=== PATIENT | female | born 1990 | race Caucasian/White ===

== ENCOUNTER 2016-12-25 21:46 | Emergency (ER) | payer SELFPAY ==
[2016-12-25 21:49] VITALS: BP 108/59; PULSE 87; RESP 15; TEMP 99; O2SAT 100
[2016-12-25] MEDS ORDERED: SODIUM CHLOR 0.9% 1000 ML INJ 1,000 ML IV ONE (22:29)
[2016-12-25] MEDS ORDERED: ONDANSETRON HCL 4 MG/2 ML VIAL IVP ONE (22:30)
[2016-12-25] MEDS ORDERED: SODIUM CHLORIDE 0.9% FLUSH 10 ML FLUSH IVF PRN (22:30)
[2016-12-25 22:40] VITALS: RESP 18; O2SAT 100
[2016-12-25 23:02] LABS: AUTOMATED NEUTROPHIL # 3.3 TH/MM3 (1.8-7.7); BASOPHIL # 0.1 TH/MM3 (0-0.2); EOSINOPHIL # 0.1 TH/MM3 (0-0.4); HEMO FLAGS DIFF FINAL; LYMPH % 32.3 % (9.0-44.0); LYMPHOCYTE # 1.8 TH/MM3 (1.0-4.8); MEAN CELL VOLUME 87.4 FL (80.0-100.0); MEAN CORPUSCULAR HEMOGLOBIN 29.6 PG (27.0-34.0); MEAN CORPUSCULAR HGB CONC 33.9 % (32.0-36.0); NEUT % 59.7 % (16.0-70.0); PLATELET COUNT 199 TH/MM3 (150-450); RED BLOOD COUNT 4.23 MIL/MM3 (4.00-5.30); RED CELL DISTRIBUTION WIDTH 12.9 % (11.6-17.2); WHITE BLOOD COUNT 5.5 TH/MM3 (4.0-11.0)
[2016-12-25 23:19] LABS: BICARBONATE 24.3 MEQ/L (21.0-32.0); POTASSIUM 3.3 MEQ/L (3.5-5.1)
[2016-12-25] MEDS ORDERED: ZOFR4TAB3 SL (23:20)
--- NOTE | 2016-12-25 23:22 | PD ---
HPI . Abdominal pain Chief Complaint: GI Complaint Time Seen by Provider: 22:29 Travel History International Travel<30 days: No Contact w/Intl Traveler<30days: No Traveled to known affect area: No History of Present Illness HPI Patient presents complaining with lower abdominal pain associated with nausea and vomiting. She reports 10 episodes of emesis. Symptoms started at 4 PM. No diarrhea. No fever. No urinary tract symptoms. She is 2 months . She denies any dyspareunia or vaginal discharge. PFSH Past Medical History Diminished Hearing: No ?: LMP: 2 mos ago : 2 Para: 1 Past Surgical History Surgical History: No Previous Surgery Social History Alcohol Use: No Tobacco Use: No (never) Substance Use: No Allergies-Medications (Allergen,Severity, Reaction): Coded Allergies: Penicillin (Verified Allergy, Unknown, 12/25/16) Reported Meds & Prescriptions Reported Meds & Active Scripts Active Zofran Odt (Ondansetron Odt) 4 Mg Tab 4 Mg SL Q6HR PRN Review of Systems Except as stated in HPI: all other systems reviewed are Neg General / Constitutional: No: Fever, Chills Gastrointestinal: Positive: Nausea, Vomiting, Abdominal Pain, No: Diarrhea Genitourinary: No: Urgency, Frequency, Dysuria, Dyspareunia, Discharge, Vaginal Bleeding Physical Exam Narrative GENERAL: Patient is awake and alert and in no acute distress. She is [place]- speaking. SKIN: Warm and dry. HEAD: Atraumatic. Normocephalic. EYES: Pupils equal and round. Extraocular movements are intact. ENT: No nasal bleeding or discharge. Mucous membranes pink and moist. NECK: Trachea midline. Neck is supple. CARDIOVASCULAR: Regular rate and rhythm. Heart sounds are normal. RESPIRATORY: No accessory muscle use. Lungs are clear with full air movement throughout. GASTROINTESTINAL: Abdomen soft. Mild suprapubic tenderness with no guarding or rebound. Nondistended. MUSCULOSKELETAL: No obvious deformities. No edema. NEUROLOGICAL: Awake and alert. No obvious cranial nerve deficits. Motor grossly within normal limits. Normal speech. PSYCHIATRIC: Appropriate mood and affect; insight and judgment normal. Data Data Last Documented VS Vital Signs Date Time Temp Pulse Resp B/P Pulse Ox O2 Delivery O2 Flow Rate FiO2 12/25/16 21:49 99.0 87 15 108/59 100 Room Air Orders Complete Blood Count With Diff (12/25/16 22:29) Basic Metabolic Panel (Bmp) (12/25/16 22:29) Urinalysis - C+S If Indicated (12/25/16 22:29) Iv Access Insert/Monitor (12/25/16 22:29) Ecg Monitoring (12/25/16 22:29) Oximetry (12/25/16 22:29) Ondansetron Inj (Zofran Inj) (12/25/16 22:30) Sodium Chlor 0.9% 1000 Ml Inj (Ns 1000 M (12/25/16 22:29) Sodium Chloride 0.9% Flush (Ns Flush) (12/25/16 22:30) Ed Poc Ultrasound (12/25/16 23:22) Labs Laboratory Tests Test 12/25/16 12/25/16 22:35 22:50 White Blood Count 5.5 TH/MM3 Red Blood Count 4.23 MIL/MM3 Hemoglobin 12.5 GM/DL Hematocrit 37.0 % Mean Corpuscular Volume 87.4 FL Mean Corpuscular Hemoglobin 29.6 PG Mean Corpuscular Hemoglobin 33.9 % Concent Red Cell Distribution Width 12.9 % Platelet Count 199 TH/MM3 Mean Platelet Volume 9.4 FL Neutrophils (%) (Auto) 59.7 % Lymphocytes (%) (Auto) 32.3 % Monocytes (%) (Auto) 5.0 % Eosinophils (%) (Auto) 2.0 % Basophils (%) (Auto) 1.0 % Neutrophils # (Auto) 3.3 TH/MM3 Lymphocytes # (Auto) 1.8 TH/MM3 Monocytes # (Auto) 0.3 TH/MM3 Eosinophils # (Auto) 0.1 TH/MM3 Basophils # (Auto) 0.1 TH/MM3 CBC Comment DIFF FINAL Differential Comment Sodium Level 139 MEQ/L Potassium Level 3.3 MEQ/L Chloride Level 107 MEQ/L Carbon Dioxide Level 24.3 MEQ/L Anion Gap 8 MEQ/L Blood Urea Nitrogen 6 MG/DL Creatinine 0.49 MG/DL Estimat Glomerular Filtration 155 ML/MIN Rate Random Glucose 96 MG/DL Calcium Level 8.9 MG/DL Urine Color YELLOW Urine Turbidity HAZY Urine pH 6.5 Urine Specific [place] 1.019 Urine Protein NEG mg/dL Urine Glucose (UA) NEG mg/dL Urine Ketones 40 mg/dL Urine Occult Blood NEG Urine Nitrite NEG Urine Bilirubin NEG Urine Urobilinogen LESS THAN 2.0 MG/DL Urine Leukocyte Esterase MOD Urine RBC 2 /hpf Urine WBC 4 /hpf Urine Squamous Epithelial 4 /hpf Cells Urine Bacteria RARE /hpf Urine Mucus FEW /lpf Microscopic Urinalysis Comment CULT NOT INDICATED MDM Medical Decision Making Medical Screen Exam Complete: Yes Emergency Medical Condition: Yes Differential Diagnosis Differential diagnosis includes but is not limited to viral gastritis, food poisoning, pancreatitis, pneumonia, hepatitis, acute coronary syndrome, Narrative Course Patient presents complaining with lower abdominal pain and vomiting. Abdominal exam is benign. She'll be treated with IV fluids and IV antiemetics. CBC & BMP Diagram 12/25/16 22:35 UA shows moderate leukocyte esterase, 4 white cells and rare bacteria. Procedures Procedure Narrative Emergency Department Pelvic ultrasound was performed with patient consent. The curvilinear probe was used in the transverse and sagittal views within the suprapubic region revealing a positive intrauterine with positive heart rate. Diagnosis Primary Impression: Abdominal pain Qualified Code: R10.30 - Lower abdominal pain Additional Impressions: Vomiting Qualified Code: R11.2 - Non-intractable vomiting with nausea, unspecified vomiting type Qualified Code: Z3A.08 - 8 weeks gestation of Urinary tract infection Qualified Code: N30.00 - Acute cystitis without hematuria Patient Instructions: Acute Nausea and Vomiting (DC), General Instructions, Urinary Tract Infection in Women (DC) Med/Other Pt SpecificInfo: Prescription(s) given Scripts Nitrofurantoin Monohydrate Macrocrystals (Macrobid)100 Mg [id number] Mg PO BID 7 Days Ref 0 Prov:Dulce Maria Schilling MD 12/26/16 Ondansetron Odt (Zofran Odt)4 Mg Tab4 Mg SL Q6HR PRN (Nausea/Vomiting) #30 TAB Ref 0 Prov:Dulce Maria Schilling MD 12/25/16 Disposition: 01 DISCHARGE HOME Condition: Stable Dulce Maria Schilling MD December 25, 2016 23:22
[2016-12-26 00:12] LABS: BACTERIA, URINE RARE /hpf; BLOOD, URINE NEG (NEG); COMMENT (UR) CULT NOT INDICATED; CULTURE IF INDICATED CULT NOT INDICATED; GLUCOSE,URINE NEG (NEG); KETONE, URINE 40 mg/dL (NEG); MUCUS URINE FEW /lpf (OCC); NITRITE,URINE NEG (NEG); PH, URINE 6.5 (5.0-8.5); SQUAMOUS EPITHELIAL CELL URINE 4 /hpf (0-5); URINE COLOR YELLOW (YELLW/STRAW)
[2016-12-26] MEDS ORDERED: MACR100C2 PO (00:29)
== END 2016-12-26 01:36 | disposition home or self-care (01) ==
LOC: NEPD 21:46
DX: O26.891 Other specified pregnancy related conditions, first trimester (principal); R10.30 Lower abdominal pain, unspecified; O21.9 Vomiting of pregnancy, unspecified; O23.41 Unspecified infection of urinary tract in pregnancy, first trimester; Z3A.08 8 weeks gestation of pregnancy
CPT/HCPCS: 80048; 81001; 85025; 96374; 99284; J2405; J7030

== ENCOUNTER 2017-01-01 19:33 | Emergency (ER) | payer SELFPAY ==
[~2017-01-01] VITALS: Ht 162.6 cm; Wt 50.0 kg
[~2017-01-01 19:33] MED LIST: MACR100C2 PO; ZOFR4TAB3 SL
[2017-01-01 19:34] VITALS: BP 100/53; PULSE 75; RESP 14; TEMP 98.6; O2SAT 99
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
[2017-01-01 20:43] LABS: BACTERIA, URINE FEW /hpf; BLOOD, URINE SMALL (NEG); COMMENT (UR) CULT NOT INDICATED; CULTURE IF INDICATED CULT NOT INDICATED; GLUCOSE,URINE NEG (NEG); KETONE, URINE NEG (NEG); MUCUS URINE FEW /lpf (OCC); NITRITE,URINE NEG (NEG); SQUAMOUS EPITHELIAL CELL URINE 22 /hpf (0-5); URINE COLOR YELLOW (YELLW/STRAW)
== END 2017-01-01 21:23 | disposition home or self-care (01) ==
LOC: NEPD 19:33
DX: O26.891 Other specified pregnancy related conditions, first trimester (principal); O99.89 Other specified diseases and conditions complicating pregnancy, childbirth and the puerperium; R10.84 Generalized abdominal pain; Z3A.09 9 weeks gestation of pregnancy; Y04.2XXA Assault by strike against or bumped into by another person, initial encounter; Y93.89 Activity, other specified; Y92.019 Unspecified place in single-family (private) house as the place of occurrence of the external cause; Y99.8 Other external cause status
CPT/HCPCS: 81001; 84703; 99284

== ENCOUNTER 2017-07-23 07:24 | Inpatient (IN) | payer MEDICAID ==
[2017-07-23] VITALS (31 sets, daily range): BP systolic 101–131; BP diastolic 56–73; PULSE 53–105; RESP 16–20; TEMP 97.5–99; O2SAT 97–99
[~2017-07-23] VITALS: Ht 152.4 cm; Wt 68.0 kg
[2017-07-23] MEDS ORDERED: LACTATED RINGER'S 1000 ML INJ 1,000 ML IV PRN (08:34)
[2017-07-23] MEDS ORDERED: LACTATED RINGER'S 1000 ML INJ 1,000 ML IV SCH (08:34)
[2017-07-23] MEDS ORDERED: LIDOCAINE HCL 1% 50 ML VIAL I-DERMAL PRN (08:45)
[2017-07-23] MEDS ORDERED: OXYTOCIN 30 UNITS-500ML PREMIX 500 ML IV ONE (08:45)
[2017-07-23] MEDS ORDERED: LIDOCAINE HCL 1% 50 ML VIAL INFIL PRN (08:45)
[2017-07-23] MEDS ORDERED: MINERAL OIL 10 ML VIAL TOPICAL PRN (08:45)
[2017-07-23] MEDS ORDERED: CITRIC ACID-SODIUM CITRATE LIQ 30 ML UDC PO SCH (08:45)
[2017-07-23] MEDS ORDERED: SODIUM CHLORID 0.9% 500 ML INJ 500 ML IV PRN (08:45)
[2017-07-23] MEDS ORDERED: SODIUM CHLOR 0.9% 1000 ML INJ 1,000 ML IV PRN (08:54)
--- NOTE | 2017-07-23 08:56 | HHI.HP ---
History & Physical H&P HPI Chief Complaint rupture of membranes with vaginal bleeding Date Seen: Jul 23, 2017 Time Seen: 08:10 Travel History International Travel<30 Days: No Contact w/Intl Traveler<30Days: No Known Affected Area: No History of Present Illness HPI Ms Edmonds is a 26YO at 39 weeks seen by Jackelin Clements who presents with SROM time unknown this morning with meconium stained fluid and some vaginal bleeding. 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 Pt is having painful contractions approx 3 minutes apart. Denies CP, N/V/D, and DVT pain, but does have some SOB. Pt also had chlamydia at 4 months of 01/25 that was treated and test of cure at 03/27 negative Chlamydia and GC. HepB negative. Pt GBS status is unknown. Weeks Gestation: 39 Para: 1 : 3 Miscarriage: 1 : 0 History (Limited) History Past Medical History Medical History: Denies Significant Hx Obstetric History Obstetric History 1x 1x spontaneous miscarriage Chlamydia treated at 4 months of Past Surgical History Surgical History: No Previous Surgery Family History Narrative Family History Father and Mother with DM, HTN, CAD, but no cancer Social History Alcohol Use: No Tobacco Use: No Substance Abuse: No Allergies-Medications Allergies-Medications (Allergen,Severity, Reaction): Coded Allergies: penicillin G (Unverified Allergy, Unknown, 03/25/17) Comments SOB with Penicillin Home Meds Active Scripts Nitrofurantoin Monohydrate Macrocrystals (Macrobid) 100 Mg Cap, 100 MG PO BID for Infection for 7 Days, CAP 0 Refills Prov:Dulce Maria Schilling MD 12/26/16 Ondansetron Odt (Zofran Odt) 4 Mg Tab, 4 MG SL Q6HR Y for Nausea/Vomiting, #30 TAB 0 Refills Prov:Dulce Maria Schilling MD 12/25/16 ROS Review of Systems General / Constitutional: No: Fever, Chills HENT: No: Headaches, Lightheadedness Cardiovascular: No: Chest Pain or Discomfort, Palpitations, Edema Respiratory: Short of Breath Gastrointestinal: No: Nausea, Vomiting, Diarrhea Genitourinary: Discharge, Vaginal Bleeding, No: Urgency, Frequency Skin: No Rash Neurologic: No: Weakness, Dizziness Psychiatric: No: Depression Physical Exam Physical Exam Narrative GENERAL: Well-nourished, well-developed patient laboring in bed. SKIN: Warm and dry. No rashes or lesions. HEAD: Normocephalic and atraumatic. EYES: No scleral icterus. No injection or drainage. EOMI. ENT: No nasal drainage noted. Mucous membranes pink. Airway patent. NECK: Supple, trachea midline. No JVD; no lymphadenopathy. CARDIOVASCULAR: Regular rate and rhythm without murmur, gallop, or rub. RESPIRATORY: Breath sounds equal bilaterally in all lung ceballos. No accessory muscle use. ABDOMEN/GI: Abdomen soft, non-tender, bowel sounds present, no rebound, no guarding Gravid to 39 weeks size Fundal Height: 39cm GENITOURINARY: Cervix: posterior Dilatation: 4 Effacement: 70 Station: -2 Presentation: vtx Membranes: ruptured Uterine Contractions: yes, q3m FHT's: Category: 1 Baseline: 140 Reactive: yes Variability: moderate Decels: none EXTREMITIES: No cyanosis or edema. BACK: Nontender without obvious deformity. No CVA tenderness. NEUROLOGICAL: Awake and alert. Motor and sensory grossly within normal limits. Five out of 5 muscle strength in all muscle groups. Normal speech. Data Data Data Vital Signs Reviewed: Yes Orders Orders Ob (2e) Additional Admit Info (07/23/17 08:29) Admit To Inpatient (07/23/17 ) Code Status (07/23/17 08:34) Vital Signs (Adult) .Per protocol (07/23/17 08:34) Activity Oob Ad Katie (07/23/17 08:34) Heart (07/23/17 08:34) Amnioinfusion (07/23/17 08:34) Urinary Catheter Management .ONCE (07/23/17 08:34) Diet Liquid (07/23/17 Breakfast) Lactated Ringer's 1000 Ml Inj (Lr 1000 M (07/23/17 08:34) Lactated Ringer's 1000 Ml Inj (Lr 1000 M (07/23/17 08:34) Sodium Chlorid 0.9% 500 Ml Inj (Ns 500 M (07/23/17 08:45) Sodium Chlor 0.9% 1000 Ml Inj (Ns 1000 M (07/23/17 08:54) Lidocaine 1% Inj (50 Ml) (Xylocaine 1% I (07/23/17 08:45) Citric Acid-Sodium Citrate Liq (Bicitra (07/23/17 08:45) Fentanyl Inj (Fentanyl Inj) (07/23/17 08:45) Fentanyl Inj (Fentanyl Inj) (07/23/17 08:45) Complete Blood Count With Diff (07/23/17 08:34) Hold Clot (07/23/17 08:34) Abo/Rh Blood Type (07/23/17 08:34) Urinalysis - C+S If Indicated (07/23/17 08:34) Drug Screen, Random Urine (07/23/17 08:34) Rapid Plasma Regin (Rpr) W Ttr (07/23/17 08:34) Resp Oxygen Non Rebreathe Mask (07/23/17 ) ^ Epidural / Intrathecal Infus (07/23/17 08:34) Oxytocin 30 Units-500ml Premix (Pitocin (07/23/17 08:45) Lidocaine 1% Inj (50 Ml) (Xylocaine 1% I (07/23/17 08:45) Light Mineral Oil (Muri-Lube Oil) (07/23/17 08:45) Inpatient Certification (07/23/17 ) MDM MDM Medical Record Reviewed: No (records not available yet) Narrative Course / MDM 26YO at 39 weeks (per pt, records not available yet) with SROM this morning (time unknown) who is followed by Jackelin Clements presents in labor at 4/ 70/-2 with painful contractions and vaginal bleeding, GBS unknown. Chlamydia treated at 4 months of . Cat 1 tracing is reassuring with BL 140, reactive, moderate and no decels. PLAN: -Admit for labor and delivery -IVF -Clear diet -Epidural PRN -Monitoring Discussed with Dr Espino Diagnosis Diagnosis: Primary Impression: Rupture of membranes with meconium present Deni Ayoub MD R1 Jul 23, 2017 08:56
[2017-07-23 09:10] LABS: AUTOMATED NEUTROPHIL # 5.6 TH/MM3 (1.8-7.7); BASOPHIL # 0.1 TH/MM3 (0-0.2); BASOPHIL % 0.7 % (0.0-2.0); EOSINOPHIL % 0.4 % (0.0-4.0); HEMATOCRIT 34.4 % (35.0-46.0); HEMO FLAGS DIFF FINAL; LYMPH % 17.6 % (9.0-44.0); LYMPHOCYTE # 1.3 TH/MM3 (1.0-4.8); MEAN CELL VOLUME 82.1 FL (80.0-100.0); MEAN CORPUSCULAR HEMOGLOBIN 26.4 PG (27.0-34.0); MEAN CORPUSCULAR HGB CONC 32.2 % (32.0-36.0); MONO % 3.6 % (0.0-8.0); NEUT % 77.7 % (16.0-70.0); PLATELET COUNT 231 TH/MM3 (150-450); RED BLOOD COUNT 4.18 MIL/MM3 (4.00-5.30); RED CELL DISTRIBUTION WIDTH 15.3 % (11.6-17.2); WHITE BLOOD COUNT 7.3 TH/MM3 (4.0-11.0)
[2017-07-23 09:17] LABS: BACTERIA, URINE RARE /hpf; BLOOD, URINE MOD (NEG); COMMENT (UR) CULT NOT INDICATED; CULTURE IF INDICATED CULT NOT INDICATED; GLUCOSE,URINE NEG (NEG); KETONE, URINE NEG (NEG); MUCUS URINE FEW /lpf (OCC); NITRITE,URINE NEG (NEG); SQUAMOUS EPITHELIAL CELL URINE 6 /hpf (0-5); URINE COLOR YELLOW (YELLW/STRAW)
--- NOTE | 2017-07-23 10:14 | PD.LABORPN ---
Subjective Subjective Ms Edmonds is a 26YO laboring at 39 weeks with SROM this morning w/ meconium stained fluid a/cervix at 5/80/-1/vtx and Cat 1 tracing (Deni Ayoub MD R1) Objective Vital Signs Vital Signs Date Time Temp Pulse Resp B/P (MAP) Pulse Ox O2 Delivery O2 Flow Rate FiO2 07/23/17 09:25 64 121/69 (86) 07/23/17 09:25 99.0 20 Objective Pelvic Exam: Cervix: posterio Dilatation: 5 Effacement: 80 Station: -1 Presentation: vtx Membranes: ruptured w/bulging bag Uterine Contractions: regular q3m FHT's: Category: 1 Baseline: 140 Reactive: yes Variability: moderate Decels: early decels Weeks Gestation: 39 Pt started active labor?: Yes Active labor start date: Jul 23, 2017 Active labor start time: 08:15 Medical induction of labor?: No Artificial rupture of membrane: No (Deni Ayoub MD R1) Assessment/Plan Assessment and Plan 26YO at 39 weeks with SROM this morning, GBS unknown, 5/80/-1 vtx with bulging bag, Cat 1 reactive BL 140, moderate, early decels PLAN: -Continue active laboring -Epidural PRN if desired Discussed with [place] and [place] (Deni Ayoub MD R1) Assessment and Plan I personally saw the patient with the residents and performed all bell portions of the decision making. (Blanca Canela MD) Deni Ayoub MD R1 Jul 23, 2017 10:14 Blanca Canela MD Jul 23, 2017 22:30
[2017-07-23] MEDS ORDERED: CLINDAMYCIN 900 MG/NS PREMIX 50 ML IV SCH (11:00)
[2017-07-23] MEDS ORDERED: TERBUTALINE INJ 1 MG/ML AMP SQ ONE ×2 (12:30)
--- NOTE | 2017-07-23 13:39 | PD.LABORPN ---
Subjective Subjective covering Dr Baker Objective Vital Signs Vital Signs Date Time Temp Pulse Resp B/P (MAP) Pulse Ox O2 Delivery O2 Flow Rate FiO2 07/23/17 13:10 91 07/23/17 13:05 95 07/23/17 13:01 97 101/60 (74) 07/23/17 13:00 93 07/23/17 12:55 105 07/23/17 12:50 96 07/23/17 12:45 90 07/23/17 12:40 101 07/23/17 12:35 86 07/23/17 12:30 95 07/23/17 12:25 94 07/23/17 12:20 93 07/23/17 12:15 84 07/23/17 11:45 98.5 07/23/17 11:45 18 07/23/17 11:30 60 114/66 (82) 07/23/17 10:32 61 116/70 (85) 07/23/17 10:30 99.0 07/23/17 10:30 18 07/23/17 09:25 64 121/69 (86) 07/23/17 09:25 99.0 20 Objective Pelvic Exam: Cervix: [-] Dilatation: 8 Effacement: [-] Station: [-] Presentation: [-] Membranes: IUPC for variables per Dr baker Uterine Contractions: [-] FHT's: Category: [-] Baseline: [-] Reactive: [-] Variability: [-] Decels: [-] Weeks Gestation: 39 Pt started active labor?: Yes Active labor start date: Jul 23, 2017 Active labor start time: 08:15 Medical induction of labor?: No Artificial rupture of membrane: No Assessment/Plan Problem List: (1) ICD Codes: Z33.1 - state, incidental Status: Acute Quentin Emerson MD Jul 23, 2017 13:39
--- NOTE | 2017-07-23 14:36 | PD.OB.DELI ---
Weeks gestation: 39 Pt started active labor?: Yes Active labor start date: Jul 23, 2017 Active labor start time: 08:15 Medical induction of labor?: No Artificial rupture of membrane: No Anesthesia: None Episiotomy: None Vaginal Delivery: Normal, Spontaneous Presentation: Vertex Nuchal Cord: None Delayed cord clamping (45 sec): No : Male Delivery date: Jul 23, 2017 Delivery time: 14:13 One Minute : 8 Five Minute : 9 Weight: 3155g Placenta: Spontaneous delivery, Intact, 3 vessel cord Laceration: No lacerations Estimated blood loss: 150cc Additional Information Delivery performed by Dr. Baca and Dr. Canela. Marjorie Baca MD R2 Jul 23, 2017 14:36
[2017-07-23] MEDS ORDERED: ONDANSETRON ODT 4 MG TAB PO PRN (14:45)
[2017-07-23] MEDS ORDERED: ZOLPIDEM TARTRATE 5 MG TAB PO PRN (14:45)
[2017-07-23] MEDS ORDERED: OXYTOCIN 30 UNITS-500ML PREMIX 500 ML IV SCH (14:45)
[2017-07-23] MEDS ORDERED: ALUMINUM/MAGNESIUM/SIMETH 30 ML CUP PO PRN (14:45)
[2017-07-23] MEDS ORDERED: BENZOCAINE 20% TOPICAL SPRAY 60 ML CAN TOPICAL PRN (14:45)
[2017-07-23] MEDS ORDERED: DOCUSATE SODIUM 50 MG/SENNA 8.6 MG TAB PO PRN (14:45)
[2017-07-23] MEDS ORDERED: WITCH HAZEL 50%/GLYCERIN 12.5% 40 PAD JAR TOPICAL PRN (14:45)
[2017-07-23] MEDS ORDERED: SODIUM CHLORIDE 0.9% FLUSH 10 ML FLUSH IV FLUSH PRN (14:45)
[2017-07-23] MEDS ORDERED: oxyCODONE/ACETAMINOPHEN 5 MG/325 MG TAB PO PRN ×2 (14:45)
[2017-07-23] MEDS ORDERED: DIPHTH/TETANUS/ACEL PERTUSSIS (BOOSTER) 0.5 ML VIAL/PFS IM ONE (16:00)
[2017-07-23] MEDS ORDERED: MEASLES, MUMPS, RUBELLA VACCINE 0.5 ML VIAL SQ ONE (16:00)
[2017-07-23] MEDS: IBUPROFEN 800 MG TAB PO PRN (18:19)
[2017-07-23] MEDS: SODIUM CHLORIDE 0.9% FLUSH 10 ML FLUSH IV FLUSH SCH (21:00)
[2017-07-24 08:00] VITALS: BP 99/52; PULSE 55; RESP 14; TEMP 98.6
[2017-07-24] MEDS: IBUPROFEN 800 MG TAB PO PRN ×2 (08:14→16:33)
[2017-07-24] MEDS: ACETAMINOPHEN 325 MG TAB PO PRN ×3 (08:15→22:50)
--- NOTE | 2017-07-24 16:06 | HHI.OB ---
Subjective Post Day: 1 Remarks day # 1. AFVSS overnight. Pain not well controlled but patient is not asking for pain medication and complains of back pain. Lochia like a period. Denies dysuria. No breast tenderness. She is feeding the baby via breast. Appetite good. No nausea or vomiting. Positive flatus. Negative bowel movement. Ambulated only to the bathroom. She denies calf pain, shortness of breath, or chest pain. Patient and her significant other repeatedly asked when she can go home with the baby. Notably, the interview was conducted with the help of [facility] interpreting services. Objective Vitals/I&O Vital Signs Date Time Temp Pulse Resp B/P (MAP) Pulse Ox O2 Delivery O2 Flow Rate FiO2 07/24/17 08:00 98.6 55 14 99/52 (68) 07/23/17 20:00 97.5 97 07/23/17 20:00 53 20 107/61 (76) Objective Remarks GENERAL: Well-nourished, well-developed patient. CARDIOVASCULAR: Regular rate and rhythm without murmurs, gallops, or rubs. RESPIRATORY: Breath sounds equal bilaterally. No accessory muscle use. ABDOMEN/GI: Abdomen soft, tender to palpation. Fundus: Firm, below umbilicus. GENITOURINARY: Light to moderate bleeding. EXTREMITIES: No cyanosis or edema, non-tender, without signs of DVT. Medications and IVs Current Medications Medications (Trade) Dose Ordered Sig/Wil Route Start Time Stop Time Status Last Admin (NS Flush) 2 ml BID IV FLUSH 07/23/17 21:00 (NS Flush) 2 ml UNSCH PRN IV FLUSH 07/23/17 14:45 (Tylenol) 650 mg Q4H PRN PO 07/23/17 14:45 07/24/17 08:15 (Motrin) 800 mg Q8H PRN PO 07/23/17 14:45 07/24/17 08:14 (Percocet 5-325 Mg) 1 tab Q4H PRN PO 07/23/17 14:45 07/23/17 15:39 (Percocet 5-325 Mg) 2 tab Q4H PRN PO 07/23/17 14:45 (Americaine 20% Top Spr) 1 spray Q4H PRN TOPICAL 07/23/17 14:45 07/24/17 08:15 (Tucks Pads) 1 applic QID PRN TOPICAL 07/23/17 14:45 07/24/17 08:15 (Dimple-Colace) 2 tab Q12H PRN PO 07/23/17 14:45 07/24/17 08:15 (Ambien) 5 mg HS PRN PO 07/23/17 14:45 (Mag-Al Plus Susp Liq) 15 ml Q8H PRN PO 07/23/17 14:45 (Zofran Odt) 4 mg Q6H PRN PO 07/23/17 14:45 Assessment/Plan Problem List: (1) Normal spontaneous vaginal delivery ICD Codes: O80 - Encounter for full-term uncomplicated delivery Assessment and Plan 26y/o female who is PPD#1 s/p spontaneous vaginal delivery -Continue routine care -Motrin and Percocet PRN for pain -Pericolase PRN for constipation -Encouraged OOB. Advised pelvic rest for 6 wks -Will need a follow-up appointment within 6 wks for post- check -Re: ctrl -patient would like Depo-Provera injection but not now Discussed with Dr. Canela Discharge Planning Discharge home in 1 day Marjorie Baca MD R2 Jul 24, 2017 16:06
[2017-07-24 20:00] VITALS: BP 105/54; PULSE 61; RESP 16; TEMP 98.4
--- NOTE | 2017-07-25 07:27 | HHI.OB ---
Subjective Post Day: 2 Remarks day # 2. AFVSS overnight. Pain is better controlled. Lochia less than a period. Denies dysuria. No breast tenderness. She is feeding the baby via breast. Appetite good. No nausea or vomiting. Positive flatus. Positive bowel movement. Ambulated only to the bathroom. She denies calf pain, shortness of breath, or chest pain. Notably, the interview was conducted with the help of [employer] interpreting services. Objective Vitals/I&O Vital Signs Date Time Temp Pulse Resp B/P (MAP) Pulse Ox O2 Delivery O2 Flow Rate FiO2 07/24/17 20:00 98.4 61 16 105/54 (71) 07/24/17 08:00 98.6 55 14 99/52 (68) Objective Remarks GENERAL: Well-nourished, well-developed patient. CARDIOVASCULAR: Regular rate and rhythm without murmurs, gallops, or rubs. RESPIRATORY: Breath sounds equal bilaterally. No accessory muscle use. ABDOMEN/GI: Abdomen soft, tender to palpation. Fundus: Firm, below umbilicus. GENITOURINARY: Light to moderate bleeding. EXTREMITIES: No cyanosis or edema, non-tender, without signs of DVT. Medications and IVs Current Medications Medications (Trade) Dose Ordered Sig/Wil Route Start Time Stop Time Status Last Admin (NS Flush) 2 ml BID IV FLUSH 07/23/17 21:00 (NS Flush) 2 ml UNSCH PRN IV FLUSH 07/23/17 14:45 (Tylenol) 650 mg Q4H PRN PO 07/23/17 14:45 07/24/17 22:50 (Motrin) 800 mg Q8H PRN PO 07/23/17 14:45 07/24/17 16:33 (Percocet 5-325 Mg) 1 tab Q4H PRN PO 07/23/17 14:45 07/23/17 15:39 (Percocet 5-325 Mg) 2 tab Q4H PRN PO 07/23/17 14:45 (Americaine 20% Top Spr) 1 spray Q4H PRN TOPICAL 07/23/17 14:45 07/24/17 08:15 (Tucks Pads) 1 applic QID PRN TOPICAL 07/23/17 14:45 07/24/17 08:15 (Dimple-Colace) 2 tab Q12H PRN PO 07/23/17 14:45 07/24/17 08:15 (Ambien) 5 mg HS PRN PO 07/23/17 14:45 (Mag-Al Plus Susp Liq) 15 ml Q8H PRN PO 07/23/17 14:45 (Zofran Odt) 4 mg Q6H PRN PO 07/23/17 14:45 Assessment/Plan Problem List: (1) Normal spontaneous vaginal delivery ICD Codes: O80 - Encounter for full-term uncomplicated delivery Assessment and Plan 26y/o female who is PPD#2 s/p spontaneous vaginal delivery -Continue routine care -Motrin and Percocet PRN for pain -Pericolase PRN for constipation -Encouraged OOB. Advised pelvic rest for 6 wks -Will need a follow-up appointment within 6 wks for post- check -Re: ctrl -patient would like Depo-Provera injection but not now Discussed with Dr. Gilman Discharge Planning Discharge home in 1 day Marjorie Baca MD R2 Jul 25, 2017 07:27
[2017-07-25 08:00] VITALS: BP 100/56; PULSE 57; RESP 18; TEMP 98.2; O2SAT 99
[2017-07-25] MEDS: SODIUM CHLORIDE 0.9% FLUSH 10 ML FLUSH IV FLUSH SCH (09:59)
[2017-07-25] MEDS ORDERED: IBUP1TAB7 PO (11:02)
--- NOTE | 2017-07-25 11:03 | HHI.DCPOC ---
Discharge Care Plan Diagnosis: (1) Normal spontaneous vaginal delivery Report Symptoms to Your Doctor -Temperature above 100.5 degrees -Redness, of incision or excessive or foul smelling drainage -Unusual pain or calf pain -Increased vaginal bleeding -Painful or difficulty urinating -Feelings of extreme sadness or anxiety after 2 weeks Goals to Promote Your Health * To prevent worsening of your condition and complications * To maintain your health at the optimal level Directions to Meet Your Goals Take your medications as prescribed Follow your dietary instruction Follow activity as directed Ensure plenty of rest for recovery Drink fluids for hydration Keep your appointments as scheduled Take your immunizations and boosters as scheduled If your symptoms worsen call your PCP, if no PCP go to Urgent Care Center or Emergency Room Smoking is Dangerous to Your Health. Avoid second hand smoke Call the 24-hour crisis hotline for domestic abuse at Marjorie Baca MD R2 Jul 25, 2017 11:03
[2017-07-25] MEDS: IBUPROFEN 800 MG TAB PO PRN (12:45)
== END 2017-07-25 13:48 | disposition home or self-care (01) | DRG 775 ==
LOC: HOBED 07:24 → H2EB 08:30 → H1EA 15:56
PROVIDERS: ADMIT Obstetrics & Gynecology Obstetrics; ATTEND Obstetrics & Gynecology Obstetrics
PROC: 10E0XZZ Delivery of Products of Conception, External Approach (ICD-10-PCS; principal; 2017-07-23)
PROC: 10H07YZ Insertion of Other Device into Products of Conception, Via Natural or Artificial Opening (ICD-10-PCS; 2017-07-23)
DX: O77.0 Labor and delivery complicated by meconium in amniotic fluid (principal); O76 Abnormality in fetal heart rate and rhythm complicating labor and delivery; Z37.0 Single live birth; Z3A.39 39 weeks gestation of pregnancy
CPT/HCPCS: 80307; 81001; 85025; 86592; 86900; 86901; 90715; J2590; J3010; J7030; J7120